=== PATIENT | female | born 1950 | race African-American/Black ===

== ENCOUNTER 2019-05-02 03:42 | Observation (INO) | payer MEDICARE, MEDICAID, SELFPAY ==
[2019-05-02] VITALS (19 sets, daily range): BP systolic 118–167; BP diastolic 58–80; PULSE 76–154; RESP 14–25; TEMP 35.9–36.6; O2SAT 93–100; BMI 40.7
--- NOTE | ~2019-05-02 | XR_ITS ---
XR chest 1V portable DATE: 05/02/2019 04:24 INDICATION: Midsternal chest pain. Shortness of breath. TECHNIQUE: Portable upright AP chest on 05/02/2019 at 0424 hours COMPARISON: 02/21/2019 AP and lateral chest FINDINGS: No pulmonary consolidation, pleural effusion or pneumothorax is detected. No hilar or media stinal enlargement. There is pulmonary vascular redistribution which might indicate mild pulmonary ve nous hypertension. Clinical correlation is advised. Heart size is likely within normal range considering magnification associated with AP projection. The re is some aortic unfolding. Osteoarthritic spurring of the right humeral head. Osteopenia. IMPRESSION: Pulmonary vascular redistribution, which may indicate mild pulmonary venous hypertension No pulmonary consolidation is evident Reviewed, dictated and finalized at location A. BOARD ERECTOR HELPER IMPRESSION: Pulmonary vascular redistribution, which may indicate mild pulmonar y venous hypertension No pulmonary consolidation is evident
--- NOTE | 2019-05-02 03:54 | ED.CHESTPAIN ---
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 Pt states her chest tightness is a 5/10, non radiating. Pt has a h/o CHF and COPD. Onset: during rest Related Data Allergies Allergy/AdvReac Type Severity Reaction Status Date / Time lisinopril Allergy Severe ANGIOEDEMA Verified 05/02/19 03:50 Review of Systems Review of Systems: All systems reviewed & are unremarkable except as noted in HPI and below Constitutional: Constitutional: Denies body ache(s), Denies chills, Denies excessive sweating, Denies fatigue, Denies fever(s), Denies headache(s), Denies lethargy, Denies malaise, Denies weakness and Denies weight loss Eyes: Eyes: Denies blurry vision, Denies change in vision and Denies loss of vision ENT: Denies dizziness, Denies ear discharge, Denies headache(s), Denies lip swelling, Denies epistaxis, Denies nasal congestion, Denies neck pain, Denies throat swelling and Denies tongue swelling Cardiovascular: Cardiovascular: Denies diaphoresis, Denies rapid heart rate, Denies edema, Denies irregular heart rhythm, Denies lightheadedness, Denies palpitations, Denies dyspnea and Denies dyspnea on exertion Respiratory: Respiratory: Denies chest congestion, Denies cough and Denies hemoptysis Gastrointestinal: Gastrointestinal: Denies abdominal pain, Denies melena, Denies hematochezia, Denies diarrhea, Denies nausea, Denies vomiting and Denies hematemesis Musculoskeletal: Musculoskeletal: Denies abnormal gait, Denies deformity, Denies joint swelling, Denies limited range of motion, Denies neck pain and Denies numbness Neurologic: Denies Abnormal speech present, Denies abnormal gait, Denies confusion, Denies dizziness, Denies headache(s), Denies focal weakness, Denies loss of vision, Denies numbness, Denies Other visual disturbances, Denies Sensory deficit (Neuro) and Denies weakness Psychiatric: Psychiatric: Denies confusion, Denies depression, Denies auditory hallucinations, Denies homicidal ideation and Denies suicidal ideation Endocrine: Endocrine: Denies cold intolerance, Denies excessive sweating, Denies fatigue, Denies heat intolerance and Denies palpitations Hematologic/Lymphatic: Hematologic/Lymphatic: Denies easy bleeding and Denies easy bruising Allergic/Immunologic: Allergic/Immunologic: Denies lip swelling, Denies throat swelling and Denies tongue swelling [facility] Past Medical History Medical History (Updated 05/02/19 @ 05:56 by Neymar Allan MD) Anxiety Arthritis Asthma Back pain Bronchitis Cataracts, bilateral CHF (congestive heart failure) COPD (chronic obstructive pulmonary disease) Depression GERD (gastroesophageal reflux disease) Hypertension Sleep apnea SVT (supraventricular tachycardia) Type 2 diabetes mellitus Surgical History Surgical History (Updated 02/21/19 @ 14:43 by Mitra Drew) H/O: hysterectomy History of cataract surgery bilateral Hx of cholecystectomy Social History Social History (Updated 02/21/19 @ 14:44 by Mitra Drew) Smoking packs per day: 1 Smoking cigarettes per day: 20.0 Years smoked: 30 Smoking pack-years: 30.00 Smoking status: Former smoker Exam Const: General: cooperative, comfortable, well developed, alert and awake; No confusion Nutritional Appearance: obese Orientation/consciousness: oriented to person, oriented to place, oriented to time, patient oriented x3 and No confusion Limitations: no limitations Other: moderate distress HENMT: Head: normal to inspection, normocephalic and atraumatic Ears: hearing grossly normal bilaterally, TM normal on the right and TM normal on the left General nose exam: Normal external nose present, Normal nares present and No nasal discharge present Face and sinus: normal facial exam Mouth: Yes Normal oral a
[2019-05-02] MEDS: IPRATROPIUM BR 0.02% INH SOLN 0.5 MG/2.5 ML VIAL INHALATION (03:58)
--- NOTE | 2019-05-02 04:12 | PC.NURSE ---
Per EDP Sanjana, no dose of Aspirin needed. 324mg given by EMS prior to arrival to ED.
[2019-05-02 04:17] LABS: Basophils Percent Auto 0.5 % (0.2-1.2); Eosinophils Absolute Auto 0.2 K/mm3 (0-0.3); Eosinophils Percent Auto 2.2 % (0-4.4); Hematocrit 36.2 % (37.0-47.0); Hemoglobin 10.2 g/dL (12.0-15.0); Immature Granulocyte Absolute 0.02 K/mm3 (0.00-0.031); Immature Granulocyte Percent A 0.3 % (0-0.5); Lymphocytes Absolute Auto 1.92 K/mm3 (0.9-3.2); Lymphocytes Percent Auto 25.9 % (18.3-44.2); Mean Corpuscular HGB Conc 28.2 g/dl (32-36); Mean Corpuscular Hemoglobin 22.2 pg (26-34); Mean Corpuscular Volume 78.9 fl (80-100); Mean Platelet Volume 12.4 fl (7.4-10.4); Monocytes Absolute Auto 0.6 K/mm3 (0.1-0.6); Monocytes Percent Auto 8.2 % (2.6-8.5); Neutrophils Absolute Auto 4.7 K/mm3 (1.3-6.7); Neutrophils Percent Auto 62.9 % (45.5-73.1); Platelet Count Result 180 k/mm3 (150-375); Red Blood Count 4.59 M/mm3 (4.2-5.4); Red Cell Distribution Width 16.4 % (11.5-14.5); White Blood Count 7.4 K/mm3 (4.5-10.0)
[2019-05-02 04:29] LABS: INR 1.1; Prothrombin Time 13.4 Seconds (11.1-14.7)
[2019-05-02 04:30] LABS: Partial Thromboplastin Time 29.7 SECONDS (22.3-36.8)
[2019-05-02 04:31] LABS: Blood Urea Nitrogen 18 mg/dL (7-17); Calcium 9.1 mg/dL (8.4-10.2); Carbon Dioxide 36 mmol/L (22-30); Chloride 95 mmol/L (98-107); Estimated CRCL calculation 64 ml/min; Estimated Glomerular Filt Rate > 60; Glucose 196 mg/dL (65-105); Potassium 3.9 mmol/L (3.4-5.0); Sodium 142 mmol/L (137-145)
[2019-05-02 04:32] LABS: D Dimer 0.33 ug/mL (<0.48)
[2019-05-02 04:38] LABS: Microcytosis 1+ (NORMAL); NT Pro B Type Natriuretic Pept 35 PG/ML (5-100); Platelet Estimate Adequate (Adequate)
[2019-05-02 04:43] LABS: Troponin I < 0.012 ng/mL (0.000-0.034)
--- NOTE | 2019-05-02 04:43 | ECG_ITS ---
Measurements Intervals [place] Rate: 153 P: [place]: 0 QRS: -9 QRSD: 169 T: 36 QT: 289 QTc: 461 Interpretive Statements SUPRAVENTRICULAR TACHYCARDIA INTRAVENTRICULAR CONDUCTION DELAY BORDERLINE R WAVE PROGRESSION, ANTERIOR LEADS ST-T WAVE ABNORMALITY IN INFERIOR LEADS- CONSIDER ISCHEMIA ABNORMAL ECG Electronically Signed On 05-02-2019 7:10:05 PELOTA MAKER by Michael Segal D.O.
[2019-05-02 09:01] LABS: Troponin I < 0.012 ng/mL (0.000-0.034)
[2019-05-02 11:13] LABS: Troponin I < 0.012 ng/mL (0.000-0.034)
[2019-05-02] MEDS: PANTOPRAZOLE 40 MG TABLET PO (11:57)
[2019-05-02] MEDS: MONTELUKAST SODIUM 10 MG TABLET PO (11:58)
[2019-05-02] MEDS: FUROSEMIDE 40 MG TABLET PO ×2 (11:58→18:06)
[2019-05-02] MEDS: SERTRALINE HCL 50 MG TABLET PO (11:58)
[2019-05-02] MEDS: FLUOXETINE HCL 20 MG CAP PO (11:58)
[2019-05-02] MEDS: metFORMIN HCL XR 500 MG TAB.SR.24H 1000 MG PO (12:00)
[2019-05-02] MEDS: PREGABALIN 50 MG CAPSULE 150 MG PO ×2 (12:01→18:06)
[2019-05-02 12:11] LABS: Glucose Point of Care 174 (65-105)
--- NOTE | 2019-05-02 14:15 | PC.NURSE ---
Report called to [facility] on 2 [facility], all questions answered. Patient transported to room 242-[address] [place] [address] via bed by Rc NAGY. All patient belongings sent with patient.
--- NOTE | 2019-05-02 17:09 | PM.IMHP ---
H&P: HPI History of Present Illness Chief complaint: CP/SVT Narrative: Abbie Painter is a 68 year old female that presented to ED today with chest tightness and shortness of breath. Patient has a past medical history of anxiety, asthma, back pain, bronchitis, congestive heart failure, COPD, depression, GERD, hypertension, sleep apnea, type 2 diabetes and SVT. According to patient she was at home and she started to experience chest pains ,shortness of breath and a racing heart rate. Patient noted that she has had several episodes like this in the past. She would go to the emergency room in they would give her medication to slow down her heart rate or she will bare down as if she was having a bowel movement and her heart would slowed down. She noted the pain was unbearable this time she could not bear down to slow down her heart rate. 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 She did note that she told her primary care physician about her situation but it was years ago. I will consult cardiology , so that she can establish a fitness sales consultant and have regular visits. Her vital signs on admissions are 83, 21, 94% 2 L nasal cannula, 129/62. She does have a history of COPD and uses 2 L nasal cannula daily. Well she was in the ER she did receive some Cardizem, EKG indicated SVT her troponins were negative. Patient will continue telemetry, continue her daily dose of Cardizem, and as I noted earlier cardiology will be consulted. . Patient denies SOB, CP, palpitation, extremity numbness, lightheadness, dizziness, constipation, diarrhea, or chills or fever. Patient agree that they are ready for discharge and discharge plan. Review of Systems Constitutional: Constitutional: Denies chills, Denies fatigue and Reports stops breathing during sleep Cardiovascular: Cardiovascular: Denies chest pain at rest, Denies chest pain with activity, Denies palpitations, Denies dyspnea and Denies dyspnea on exertion Respiratory: Respiratory: Denies pain with cough and Denies dyspnea Gastrointestinal: Gastrointestinal: Reports as per HPI, Denies constipation, Denies nausea and Denies vomiting Genitourinary: Genitourinary: Reports no additional female genitourinary complaints Musculoskeletal: Musculoskeletal: Reports other (Chronic lower back pain) Neurologic: Reports system reviewed and no additional complaints, except as documented, Denies vertigo, Denies dizziness, Denies syncope and Denies headache(s) [facility] Past Medical History Medical History (Updated 05/02/19 @ 17:18 by KALYANI Tariq) Anxiety Arthritis Asthma Back pain Bronchitis Cataracts, bilateral CHF (congestive heart failure) COPD (chronic obstructive pulmonary disease) Depression GERD (gastroesophageal reflux disease) Hypertension Sleep apnea SVT (supraventricular tachycardia) Type 2 diabetes mellitus Surgical History Surgical History (Updated 02/21/19 @ 14:43 by Mitra Drew) H/O: hysterectomy History of cataract surgery bilateral Hx of cholecystectomy Family History Family History (Updated 05/02/19 @ 12:49 by Keerthi Jacobo RN) Father Acute myocardial infarction Diabetes mellitus Mother Cerebrovascular accident Diabetes mellitus Sibling Diabetes mellitus Sibling Diabetes mellitus Sibling Diabetes mellitus Sibling Diabetes mellitus Sibling Diabetes mellitus Social History Social History (Updated 02/21/19 @ 14:44 by Mitra Drew) Smoking packs per day: 1 Smoking cigarettes per day: 20.0 Years smoked: 30 Smoking pack-years: 30.00 Smoking status: Former smoker Alcohol intake: current Drinks per week: 1 Substance use: never Substance use type: does not use Gender identity (if verbalized by the patient): Female Spiritual care concerns: No Meds Home Medications and Allergies Home Medications Medication Instructions Recorded Confirmed Type atorvastatin 40 mg PO DAILY 05/02/19 05/02/19 History bl
[2019-05-02 18:18] LABS: Hematocrit 35.1 % (37.0-47.0); Hemoglobin 9.6 g/dL (12.0-15.0); Mean Corpuscular HGB Conc 27.4 g/dl (32-36); Mean Corpuscular Hemoglobin 21.7 pg (26-34); Mean Corpuscular Volume 79.2 fl (80-100); Mean Platelet Volume 12.4 fl (7.4-10.4); Platelet Count Result 173 k/mm3 (150-375); Red Blood Count 4.43 M/mm3 (4.2-5.4); Red Cell Distribution Width 16.5 % (11.5-14.5)
[2019-05-02 18:39] LABS: Glucose Point of Care 107 (65-105)
[2019-05-02] MEDS: ATORVASTATIN 40 MG TABLET PO (20:28)
[2019-05-02] MEDS: INSULIN GLARGINE (*BKC) 100 UNITS/ML 55 UNITS SUB-Q (20:29)
[2019-05-02 21:42] LABS: Glucose Point of Care 227 (65-105)
[2019-05-03] VITALS (10 sets, daily range): BP systolic 141–146; BP diastolic 57–66; PULSE 66–90; RESP 17–18; TEMP 36.1–37; O2SAT 94–98
--- NOTE | 2019-05-03 | ECHO_ITS ---
Patient Info Name: Abbie Painter Age: 68 years : 1950 Gender: Female Ht: 67 in Wt: 260 lbs BSA: 2.42 m2 HR: 73 bpm BP: 146 / 65 mmHg Technical Quality: Good Exam Date: 05/03/2019 10:47 AM Exam Location: [facility] Patient Status: Outpatient Admit Date: 05/02/2019 Staff Ordering Physician: Mike Castillo MD Portrait Painter: Barbara Hudson RDCS Attending Provider: Dayana Santiago DO Exam Type: CA echo doppler color flow Study Info Complete two-dimensional, color flow and Doppler transthoracic echocardiogram is performed. Summary 1. Left ventricular systolic function is normal, estimated at 65-70%. 2. There is no increased left ventricular wall thickness. 3. There is trace mitral valve regurgitation. Left Ventricle Left ventricular chamber dimension is normal. Left ventricular systolic function is normal, estimated at 65-70%. There is no increased left ventricular wall thickness. Left ventricular septal wall motion is normal. The left ventricular diastolic function is normal. Right Ventricle Right ventricular chamber dimension is normal. Right ventricular systolic function is normal. Left Atria Left atrial chamber dimension is normal. Right Atria Right atrial chamber dimension is normal. Aortic Valve The aortic valve is trileaflet. There is no aortic valve sclerosis. There is no aortic valve stenosis. There is no aortic valve regurgitation. Pulmonic Valve The pulmonic valve is normal. There is no pulmonic valve stenosis. There is no pulmonic regurgitation. Mitral Valve The mitral valve has normal leaflets. There is no mitral valve stenosis. There is trace mitral valve regurgitation. Tricuspid Valve The tricuspid valve leaflets are normal. There is no significant tricuspid valve stenosis. There is no tricuspid valve regurgitation. Pericardium/Pleural The pericardium appears normal. There is no pericardial effusion. Aorta The aortic root size at the sinus of Valsalva is normal. The prox ascending aorta size is normal. Left Ventricular Outflow Tract Name Value Normal LVOT 2D LVOT Diameter 2.1 cm LVOT Doppler LVOT Peak Gradient 8 mmHg LVOT Mean Gradient 4 mmHg LVOT VTI 35 cm LVOT VTI/AV VTI Ratio 1.0 LVOT Stroke Volume 120 ml LVOT CO 20.0 l/min LVOT CI 8.3 l/min/m2 Pulmonic Valve Name Value Normal PV Doppler PV Peak Gradient 2 mmHg Mitral Valve Name Value Normal MV Doppler
[2019-05-03 05:54] LABS: Hematocrit 34.8 % (37.0-47.0); Hemoglobin 9.6 g/dL (12.0-15.0); Mean Corpuscular HGB Conc 27.6 g/dl (32-36); Mean Corpuscular Volume 79.8 fl (80-100); Mean Platelet Volume 11.6 fl (7.4-10.4); Platelet Count Result 159 k/mm3 (150-375); Red Blood Count 4.36 M/mm3 (4.2-5.4); Red Cell Distribution Width 16.2 % (11.5-14.5)
[2019-05-03 06:12] LABS: Alanine Aminotransferase 47 U/L (4-35); Albumin Level 3.9 g/dL (3.5-5.1); Alkaline Phosphatase 81 U/L (38-126); Aspartate Amino Transferase 39 U/L (14-36); Bilirubin,Total 0.2 mg/dL (0.2-1.3); Blood Urea Nitrogen 17 mg/dL (7-17); Calcium 9.2 mg/dL (8.4-10.2); Carbon Dioxide > 40 mmol/L (22-30); Chloride 97 mmol/L (98-107); Estimated CRCL calculation 79 ml/min; Estimated Glomerular Filt Rate > 60; Glucose 153 mg/dL (65-105); Lipase 81 U/L (23-300); Potassium 4.1 mmol/L (3.4-5.0); Sodium 142 mmol/L (137-145)
[2019-05-03 08:33] LABS: Glucose Point of Care 124 (65-105)
[2019-05-03] MEDS: metFORMIN HCL XR 500 MG TAB.SR.24H 1000 MG PO (08:35)
[2019-05-03] MEDS: FUROSEMIDE 40 MG TABLET PO (08:36)
[2019-05-03] MEDS: ASPIRIN 325 MG ENTERIC TABLET PO (08:36)
[2019-05-03] MEDS: FLUOXETINE HCL 20 MG CAP PO (08:36)
[2019-05-03] MEDS: PREGABALIN 50 MG CAPSULE 150 MG PO (08:37)
[2019-05-03] MEDS: METOPROLOL TARTRATE 12.5 MG TABLET PO (08:37)
[2019-05-03] MEDS: MONTELUKAST SODIUM 10 MG TABLET PO (08:37)
[2019-05-03] MEDS: PANTOPRAZOLE 40 MG TABLET PO (08:37)
[2019-05-03] MEDS: SERTRALINE HCL 50 MG TABLET PO (08:38)
[2019-05-03] MEDS: ACETAMINOPHEN 500 MG TABLET 1000 MG PO (08:38)
--- NOTE | 2019-05-03 10:22 | PM.IMPN ---
Progress Note: A&P Assessment and Plan (1) SVT (supraventricular tachycardia): Code(s): I47.1 - Supraventricular tachycardia Status: Acute Assessment and Plan: Continue Cardizem 180 mg daily -cardiology consulted -Continue telemetry -EKG indicates SVT -heart rate currently 100 -vital signs as ordered (2) CHF (congestive heart failure): Qualifiers: Heart failure chronicity: unspecified Heart failure type: unspecified Qualified Code(s): I50.9 - Heart failure, unspecified Code(s): I50.9 - Heart failure, unspecified Status: Acute Assessment and Plan: compensated Cont home lasix (3) Diabetes mellitus: Code(s): E11.9 - Type 2 diabetes mellitus without complications Status: Acute Assessment and Plan: cont lantus metformin SSI and hypoglycemia protocol -will adjust insulin -continue a.c. HS Accu-Cheks -Scott continue diabetic (4) COPD (chronic obstructive pulmonary disease): Code(s): J44.9 - Chronic obstructive pulmonary disease, unspecified Status: Acute Assessment and Plan: Use of 2 L nasal cannula -continue nebulizers and inhalers (5) Back pain: Code(s): M54.9 - Dorsalgia, unspecified Status: Acute Assessment and Plan: started pian medication and lidoderm Subjective Date/time seen: 05/03/19 10:22 refer to discharge note Review of Systems Constitutional: Constitutional: Denies chills, Denies fatigue, Denies headache(s) and Reports stops breathing during sleep ENT: Denies vertigo, Denies dizziness and Denies headache(s) Cardiovascular: Cardiovascular: Denies chest pain at rest, Denies chest pain with activity, Denies syncope, Denies palpitations, Denies dyspnea and Denies dyspnea on exertion Respiratory: Respiratory: Denies pain with cough, Denies dyspnea and Denies dyspnea on exertion Gastrointestinal: Gastrointestinal: Reports as per HPI, Denies constipation, Denies nausea and Denies vomiting Genitourinary: Genitourinary: Reports no additional female genitourinary complaints Musculoskeletal: Musculoskeletal: Reports other (Chronic lower back pain) Neurologic: Reports system reviewed and no additional complaints, except as documented, Denies vertigo, Denies dizziness, Denies syncope and Denies headache(s) Endocrine: Endocrine: Denies fatigue and Denies palpitations Exam Const: General: cooperative and comfortable Orientation/consciousness: oriented to person and patient oriented x3 Eyes: Pupils: Equal, round and reactive pupils present Resp: Auscultation: diminished lung sounds Cardio: Jugular venous distension: no JVD Rate: regular rate Peripheral pulses: Peripheral pulses 2+ throughout Neuro: General: oriented to person and patient oriented x3 Cranial nerves: Yes Equal, round and reactive pupils present Speech: normal speech Objective Data Vital Signs Vital Signs: Vital Signs - 24 hr 05/02/19 12:00 05/02/19 14:45 05/02/19 16:00 Temperature 36.3 C L Pulse Rate 82 76 76 Respiratory Rate 14 16 Blood Pressure 118/68 135/61 Pulse Oximetry 97 96 05/02/19 18:00 05/02/19 20:00 05/02/19 22:00 Temperature 36.6 C 35.9 C L Pulse Rate 82 85 89 Respiratory Rate 16 16 Blood Pressure 141/58 H 143/60 H Pulse Oximetry 97 95 05/02/19 22:52 05/02/19 22:53 05/03/19 00:00 Temperature Pulse Rate 83 90 Respiratory Rate 18 Blood Pressure Pulse Oximetry 95 95 05/03/19 02:00 05/03/19 02:12 05/03/19 04:00 Temperature 36.1 C L Pulse Rate 82 78 78 Respiratory Rate 18 17 Blood Pressure 146/65 H Pulse Oximetry 94 96 05/03/19 06:00 05/03/19 07:56 05/03/19 08:37 Temperature 36.2 C L Pulse Rate 82 80 Respiratory Rate 18 Blood Pressure 141/66 H Pulse Oximetry 96 95 Intake/Output Intake/Output: Intake & Output 04/30/19 05/01/19 05/02/19 05/03/19 23:59 23:59 23:59 23:59 Intake Total 840 510 Output Total 700 Balance 840 -190
--- NOTE | 2019-05-03 11:51 | PM.CNCAR ---
Assessment and Plan Assessment and plan (1) COPD (chronic obstructive pulmonary disease): Code(s): J44.9 - Chronic obstructive pulmonary disease, unspecified Status: Acute (2) Diabetes mellitus: Code(s): E11.9 - Type 2 diabetes mellitus without complications Status: Acute (3) Chest pain: Qualifiers: Chest pain type: unspecified Qualified Code(s): R07.9 - Chest pain, unspecified Code(s): R07.9 - Chest pain, unspecified Status: Acute Assessment and Plan: She has nonspecific complaint of chest pain, seems to be atypical, however she has significant risk factors for coronary disease she is to have further evaluation possibly with a stress test which could be done as an outpatient as it would not be able to do this weekend. Echocardiogram was done unremarkable, once her symptoms of palpitation improved she could be discharged home to have a follow-up outpatient to have an outpatient stress test (4) SVT (supraventricular tachycardia): Code(s): I47.1 - Supraventricular tachycardia Status: Acute Assessment and Plan: She has symptomatic palpitation seems to be showing atrial flutter, better now she is was given metoprolol continue with her home Cardizem with atrial flutter she needs to be on anticoagulation (5) Atrial flutter: Code(s): I48.92 - Unspecified atrial flutter Status: Acute Assessment and Plan: Her EKG actually showed atrial flutter with 2-1 conduction, for that she needs to be on metoprolol 25 daily as well as continue with her Cardizem 180 daily and would add that Xarelto for anticoagulation. Once she is on the anticoagulation she does not have take aspirin Additional Plan Thank you for allowing me to participate in this patient's care, I will be following up with you. Please do not hesitate to call me for any other inquiry History of Present Illness History of Present Illness Consult date/time: 05/03/19 11:51 Chief complaint is palpitation and chest heaviness. 68 years old lady with history of hypertension, diabetes mellitus, came to the hospital because of episode of heaviness the chest and palpitations started about 10 minutes prior to her calling 911 started having sudden onset palpitation patient with you slight dizziness and heaviness in the chest. Upon arrival to the hospital noted to have atrial flutter with 2-1 conduction on her EKG. She was given IV metoprolol and slowed her rate down and she converted to sinus rhythm. Cardiac is has a ventricular better. She has her shortness breath leg swelling she is not very active, no known history of coronary disease no history of previous myocardial infarction. Currently she feels okay wants to go home. Cardiac enzymes are negative. Reason For Visit: CP/SVT Review of Systems Constitutional: Constitutional: Reports difficulty sleeping, Reports fatigue and Reports lethargy Cardiovascular: Cardiovascular: Reports as per HPI Respiratory: Respiratory: Reports dyspnea PMFSH Past Medical History Medical History Anxiety Arthritis Asthma Back pain Bronchitis Cataracts, bilateral CHF (congestive heart failure) COPD (chronic obstructive pulmonary disease) Depression GERD (gastroesophageal reflux disease) Hypertension Sleep apnea SVT (supraventricular tachycardia) Type 2 diabetes mellitus Surgical History Surgical History H/O: hysterectomy History of cataract surgery bilateral Hx of cholecystectomy Family History Family History Father Acute myocardial infarction Diabetes mellitus Mother Cerebrovascular accident Diabetes mellitus Sibling Diabetes mellitus Sibling Diabetes mellitus Sibling Diabetes mellitus Sibling Diabetes mellitus Sibling Diabetes mellitus Social History Social History (Reviewed 0
[2019-05-03 13:28] LABS: Glucose Point of Care 140 (65-105)
--- NOTE | 2019-05-03 14:16 | PM.DS ---
DS: Diagnosis Admitting Diagnosis Admitting Diagnosis: Supraventricular tachycardia Discharge Diagnosis (1) SVT (supraventricular tachycardia): Code(s): I47.1 - Supraventricular tachycardia Status: Acute Assessment and Plan: dx with afib not svt Continue Cardizem 180 mg daily -cardiology consulted -Continue telemetry -heart rate currently 100 (2) CHF (congestive heart failure): Qualifiers: Heart failure chronicity: unspecified Heart failure type: unspecified Qualified Code(s): I50.9 - Heart failure, unspecified Code(s): I50.9 - Heart failure, unspecified Status: Acute Assessment and Plan: compensated Cont home lasix (3) Diabetes mellitus: Code(s): E11.9 - Type 2 diabetes mellitus without complications Status: Acute Assessment and Plan: cont lantus metformin SSI and hypoglycemia protocol -will adjust insulin -continue a.c. HS Accu-Cheks -Scott continue diabetic (4) COPD (chronic obstructive pulmonary disease): Code(s): J44.9 - Chronic obstructive pulmonary disease, unspecified Status: Acute Assessment and Plan: Use of 2 L nasal cannula -continue nebulizers and inhalers (5) Back pain: Code(s): M54.9 - Dorsalgia, unspecified Status: Acute Assessment and Plan: started pian medication and lidoderm (6) Atrial flutter: Code(s): I48.92 - Unspecified atrial flutter Status: Acute Assessment and Plan: dx with afib not svt Continue Cardizem 180 mg daily -cardiology consulted -Continue telemetry -heart rate currently 100 -with discharge home on metoprolol Cardizem and eliquis DS: Summary Hospital Course Hospital Course: H&P from : Abbie Painter is a 68 year old female that presented to ED today with chest tightness and shortness of breath. Patient has a past medical history of anxiety, asthma, back pain, bronchitis, congestive heart failure, COPD, depression, GERD, hypertension, sleep apnea, type 2 diabetes and SVT. According to patient she was at home and she started to experience chest pains ,shortness of breath and a racing heart rate. Patient noted that she has had several episodes like this in the past. She would go to the emergency room in they would give her medication to slow down her heart rate or she will bare down as if she was having a bowel movement and her heart would slowed down. She noted the pain was unbearable this time she could not bear down to slow down her heart rate. 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 She did note that she told her primary care physician about her situation but it was years ago. I will consult cardiology , so that she can establish a bulking machine operator and have regular visits. Her vital signs on admissions are 83, 21, 94% 2 L nasal cannula, 129/62. She does have a history of COPD and uses 2 L nasal cannula daily. Well she was in the ER she did receive some Cardizem, EKG indicated SVT her troponins were negative. Patient will continue telemetry, continue her daily dose of Cardizem, and as I noted earlier cardiology will be consulted. . Patient denies SOB, CP, palpitation, extremity numbness, lightheadness, dizziness, constipation, diarrhea, or chills or fever. Patient agree that they are ready for discharge and discharge plan. Patient will discharge today 05/03/19 Dx afib- cardiology was consulted this visit and she was dx with afib . she will discharge home with metoprolol and Eliquis in follow-up with bulking machine operator Patient able to tolerate all meals , slept well and ambulate at baseline. Patient denies SOB, CP, palpitation, extremity numbness, lightheadness, dizziness, constipation, diarrhea, or chills or fever. Patient agree that they are ready for discharge and discharge plan. Time Spent with Patient Time attestation: Total time spent providing and/or coordinating discharge services:60 Exam Const: General: cooperative and comfortable Tanner
== END 2019-05-03 15:45 | disposition home or self-care (01) ==
LOC: ANHED 05:56 → ANHICU 06:15 → ANHCPC 07:27 → ANH2MED 14:55
PROVIDERS: Nurse Practitioner; Admitting Provider Internal Medicine; Emergency Provider Emergency Medicine; Visit Provider Internal Medicine
DX: I48.91 Unspecified atrial fibrillation (principal); I48.92 Unspecified atrial flutter; I11.0 Hypertensive heart disease with heart failure; I50.9 Heart failure, unspecified; E11.9 Type 2 diabetes mellitus without complications; J44.9 Chronic obstructive pulmonary disease, unspecified; K21.9 Gastro-esophageal reflux disease without esophagitis; M54.9 Dorsalgia, unspecified; Z87.891 Personal history of nicotine dependence; Z79.4 Long term (current) use of insulin; Z79.84 Long term (current) use of oral hypoglycemic drugs; Z79.899 Other long term (current) drug therapy
CPT/HCPCS: 36415; 71045; 80048; 80076; 83690; 83880; 84484; 85025; 85027; 85380; 85610; 85730; 93005; 93306; 94640; 96374; 99285; A9270; G0378; J1815

== ENCOUNTER 2020-06-14 08:14 | Emergency (ER) | payer MEDICARE, MEDICAID, SELFPAY ==
[2020-06-14] VITALS (8 sets, daily range): BP systolic 115–154; BP diastolic 57–84; PULSE 85–145; RESP 17–23; TEMP 36.5; O2SAT 90–98
--- NOTE | ~2020-06-14 | XR_ITS ---
EXAMINATION: XR chest 1V portable DATE: 06/14/2020 08:34 INDICATION: Chest pain. Shortness of breath. TECHNIQUE: A single frontal view of the chest was obtained. COMPARISON: Chest single view 05/02/2019, CT abdomen and pelvis 05/26/2016 FINDINGS: There is mild atelectasis in the lower lung zones. No pleural effusion or pneumothorax. Car diomegaly is noted. IMPRESSION: 1. Mild atelectasis in the lower lung zones. 2. Cardiomegaly. Reviewed, dictated and finalized at location A.
--- NOTE | 2020-06-14 08:12 | ECG_ITS ---
Measurements Intervals [place] Rate: 146 P: [place]: 0 QRS: -12 QRSD: 185 T: 0 QT: 295 QTc: 460 Interpretive Statements SUPRAVENTRICULAR TACHYCARDIA INTRAVENTRICULAR CONDUCTION DELAY BORDERLINE R WAVE PROGRESSION, ANTERIOR LEADS ST-T WAVE ABNORMALITY IN INFERIOR LEADS- CONSIDER ISCHEMIA ABNORMAL ECG Electronically Signed On 06-14-2020 13:11:56 CDT by Michael Segal D.O.
[2020-06-14 09:21] LABS: Basophils Absolute Auto 0.1 K/mm3 (0.0-0.1); Eosinophils Absolute Auto 0.2 K/mm3 (0-0.3); Hematocrit 38.3 % (37.0-47.0); Hemoglobin 10.9 g/dL (12.0-15.0); Immature Granulocyte Absolute 0.02 K/mm3 (0.00-0.031); Immature Granulocyte Percent A 0.3 % (0-0.5); Immature Platelet Fraction Pct 6.3 % (0.9-11.2); Lymphocytes Absolute Auto 1.41 K/mm3 (0.9-3.2); Lymphocytes Percent Auto 23.8 % (18.3-44.2); Mean Corpuscular HGB Conc 28.5 g/dl (32-36); Mean Corpuscular Volume 77.2 fl (80-100); Mean Platelet Volume 11.5 fl (7.4-10.4); Monocytes Absolute Auto 0.4 K/mm3 (0.1-0.6); Monocytes Percent Auto 6.1 % (2.6-8.5); Neutrophils Absolute Auto 3.9 K/mm3 (1.3-6.7); Neutrophils Percent Auto 65.8 % (45.5-73.1); Platelet Count Result 185 k/mm3 (150-375); Red Blood Count 4.96 M/mm3 (4.2-5.4); Red Cell Distribution Width 16.7 % (11.5-14.5); White Blood Count 5.9 K/mm3 (4.5-10.0)
[2020-06-14 09:29] LABS: INR 1.1; Prothrombin Time 14.7 Seconds (11.1-14.7)
[2020-06-14 09:30] LABS: Partial Thromboplastin Time 41.1 SECONDS (22.3-36.8)
[2020-06-14 09:31] LABS: Anion Gap 4 mmol/L (8-16); Blood Urea Nitrogen 22 mg/dL (7-17); Calcium 9.7 mg/dL (8.4-10.2); Carbon Dioxide 39 mmol/L (22-30); Chloride 98 mmol/L (98-107); Estimated CRCL calculation 62 ml/min; Estimated Glomerular Filt Rate > 60; Glucose 217 mg/dL (65-105); Potassium 4.3 mmol/L (3.4-5.0); Sodium 141 mmol/L (137-145)
[2020-06-14 09:43] LABS: Troponin I < 0.012 ng/mL (0.000-0.034)
[2020-06-14 09:44] LABS: Troponin I < 0.012 ng/mL (0.000-0.034)
--- NOTE | 2020-06-14 10:38 | ED.CHESTPAIN ---
HPI - Chest Pain General Chief Complaint: Chest Pain Stated Complaint: cp/sob Time Seen by Provider: 06/14/20 08:16 History of Present Illness HPI narrative: Patient is a 69-year-old female who presents ER with chest pain and racing the heart. She awoke this morning with the symptoms. Pain is central nonradiating. She cannot describe the quality of this pain. She cannot describe any aggravating or alleviating factors. Nitroglycerin did not aid her in route with EMS. Patient was hospitalized 1 year ago with atrial flutter and started on anticoagulation. Had similar presentation at that time. Her bag grader is Dr. Tracy at [place]. Related Data Home Medications Medication Instructions Recorded Confirmed Jardiance 10 mg PO DAILY 05/02/19 05/02/19 Lantus Solostar U-100 Insulin 55 unit SUBCUT DAILY 05/02/19 05/02/19 atorvastatin 40 mg PO DAILY 05/02/19 05/02/19 diltiazem HCl [DILT-XR] 180 mg PO DAILY 05/02/19 05/02/19 fluoxetine 20 mg PO DAILY 05/02/19 05/02/19 furosemide 40 mg PO BID 05/02/19 05/02/19 metformin 1,000 mg PO DAILY 05/02/19 05/02/19 montelukast 10 mg PO DAILY 05/02/19 05/02/19 pregabalin 150 mg PO BID 05/02/19 05/02/19 sertraline 50 mg PO DAILY 05/02/19 05/02/19 Allergies Allergy/AdvReac Type Severity Reaction Status Date / Time lisinopril Allergy Severe ANGIOEDEMA Verified 06/14/20 08:28 Review of Systems Review of Systems: All systems reviewed & are unremarkable except as noted in HPI and below Constitutional: Constitutional: Denies chills, Denies fever(s) and Denies weakness ENT: Denies nasal congestion and Denies sore throat Cardiovascular: Cardiovascular: Reports chest pain, Denies rapid heart rate and Denies radiating jaw, neck or arm pain Respiratory: Respiratory: Denies cough, Reports dyspnea and Denies wheezing Gastrointestinal: Gastrointestinal: Denies abdominal pain, Denies nausea and Denies vomiting [facility] Past Medical History Medical History (Updated 06/14/20 @ 13:33 by Remberto Mosley MD) Anxiety Arthritis Asthma Back pain Bronchitis Cataracts, bilateral CHF (congestive heart failure) COPD (chronic obstructive pulmonary disease) Depression GERD (gastroesophageal reflux disease) Hypertension Sleep apnea SVT (supraventricular tachycardia) Type 2 diabetes mellitus Surgical History Surgical History H/O: hysterectomy History of cataract surgery bilateral Hx of cholecystectomy Family History Family History Father Acute myocardial infarction Diabetes mellitus Mother Cerebrovascular accident Diabetes mellitus Sibling Diabetes mellitus Sibling Diabetes mellitus Sibling Diabetes mellitus Sibling Diabetes mellitus Sibling Diabetes mellitus Social History Social History Smoking packs per day: 1 Smoking cigarettes per day: 20.0 Years smoked: 30 Smoking pack-years: 30.00 Smoking status: Former smoker Alcohol intake: current Drinks per week: 1 Substance use: never Substance use type: does not use Gender identity (if verbalized by the patient): Female Spiritual care concerns: No Exam Narrative: Exam Narrative: GENERAL: Well-appearing, well-nourished, and in no acute distress. HEAD: Normocephalic, atraumatic. ENT: Mucous membranes moist. CHEST: Clear to auscultation. No respiratory distress. HEART: Tachycardic and regular normal peripheral pulses. ABDOMEN: Soft, nontender, nondistended. EXTREMITIES: Normal range of motion. No edema. SKIN: Warm, dry, no rash. NEURO: Alert and oriented x3. PSYCH: Normal mood and affect. Course Course Emergency Course: Patient converted out of her arrhythmia without any medication here. We did give her her home diltiazem. Discussed case with Nallely the nurse practitioner at the patient's bag grader office. No modifications to
--- NOTE | 2020-06-14 10:57 | PC.NURSE ---
Dietary tray ordered for pt at this time per request and [facility] EDP for heart healthy diet.
[2020-06-14 11:58] LABS: NT Pro B Type Natriuretic Pept 80 PG/ML (5-100)
[2020-06-14 12:01] LABS: Troponin I < 0.012 ng/mL (0.000-0.034)
== END 2020-06-14 14:14 | disposition home or self-care (01) ==
PROVIDERS: Emergency Provider Emergency Medicine; PCP Family Medicine
DX: R07.9 Chest pain, unspecified (principal); I47.1 Supraventricular tachycardia; I50.9 Heart failure, unspecified; J44.9 Chronic obstructive pulmonary disease, unspecified; E11.9 Type 2 diabetes mellitus without complications; K21.9 Gastro-esophageal reflux disease without esophagitis; G47.30 Sleep apnea, unspecified; F32.9 Major depressive disorder, single episode, unspecified; F41.9 Anxiety disorder, unspecified; Z79.4 Long term (current) use of insulin; Z98.42 Cataract extraction status, left eye; Z98.41 Cataract extraction status, right eye; Z87.891 Personal history of nicotine dependence; I51.7 Cardiomegaly; I45.9 Conduction disorder, unspecified; R94.31 Abnormal electrocardiogram [ECG] [EKG]; R91.8 Other nonspecific abnormal finding of lung field
CPT/HCPCS: 36415; 71045; 80048; 83880; 84484; 85025; 85055; 85610; 85730; 93005; 99284; A9270

== ENCOUNTER 2020-12-12 14:41 | Emergency (ER) | payer MEDICARE, MEDICAID, SELFPAY ==
--- NOTE | ~2020-12-12 | XR_ITS ---
EXAMINATION: XR knee RT min 4V DATE: 12/12/2020 15:23 INDICATION: Right knee pain TECHNIQUE: Four views of the right knee were obtained. COMPARISON: None. FINDINGS: Alignment is normal. No fracture or osteochondral lesion. There is tricompartmental osteoar thritis, moderate in the medial compartment. No joint effusion/synovitis. There is moderate soft [place] swelling of the medial leg. IMPRESSION: 1. No acute osseous abnormality. Reviewed, dictated and finalized at location A.
[2020-12-12 14:58] VITALS: BP 132/54; PULSE 70; RESP 14; TEMP 36.8; O2SAT 99
--- NOTE | 2020-12-12 18:13 | PC.NURSE ---
pt not in waiting room when called.
== END 2020-12-13 04:29 | disposition left against medical advice (07) ==
PROVIDERS: Emergency Provider Emergency Medicine
DX: S80.01XA Contusion of right knee, initial encounter (principal)
CPT/HCPCS: 73564; 99199

== ENCOUNTER 2021-06-21 14:18 | Emergency (ER) | payer MEDICARE, MEDICAID, SELFPAY ==
[2021-06-21] VITALS (13 sets, daily range): BP systolic 133–165; BP diastolic 51–88; PULSE 67–84; RESP 14–22; TEMP 36.7; O2SAT 93–99
--- NOTE | ~2021-06-21 | US_ITS ---
EXAMINATION: US venous doppler [facility] DATE: 06/21/2021 16:10 INDICATION: Edema and erythema. TECHNIQUE: Grayscale images without and with compression and Doppler images of the bilateral lower ex tremity veins were obtained. COMPARISON: None. FINDINGS: The right common femoral vein, profunda (deep) femoral vein, femoral vein, popliteal vein, peroneal t runk, posterior tibial veins, and greater saphenous vein are patent. The left common femoral vein, profunda femoral vein, femoral vein, popliteal vein, peroneal trunk, po sterior tibial veins, and greater saphenous vein are patent. IMPRESSION: 1. Patent bilateral lower extremity veins. No evidence of deep venous thrombosis. Reviewed, dictated and finalized at location K. IMPRESSION: 1. Patent bilateral lower extremity veins. No evidence of deep venous thrombos is.
--- NOTE | ~2021-06-21 | XR_ITS ---
EXAMINATION: XR chest 2V Exam Date/Time: 06/21/2021 15:20 CDT CLINICAL HISTORY: bilateral lower extremity edema since 12/30, hx asthma, copd Comparison: 06/14/2020.. RESULT: Lines, tubes, and devices: None. Lungs and pleura: Clear. Cardiomediastinal silhouette: Stable cardiomediastinal silhouette. Other: No acute osseous or upper abdominal finding. IMPRESSION: No acute cardiopulmonary process Reviewed, dictated and finalized at location K.
[2021-06-21 15:12] LABS: Basophils Absolute Auto 0.1 K/mm3 (0.0-0.1); Basophils Percent Auto 0.8 % (0.2-1.2); Eosinophils Absolute Auto 0.2 K/mm3 (0-0.3); Eosinophils Percent Auto 2.6 % (0-4.4); Hematocrit 39.5 % (37.0-47.0); Hemoglobin 11.3 g/dL (12.0-15.0); Immature Granulocyte Absolute 0.03 K/mm3 (0.00-0.031); Immature Granulocyte Percent A 0.5 % (0-0.5); Lymphocytes Absolute Auto 1.66 K/mm3 (0.9-3.2); Lymphocytes Percent Auto 25.9 % (18.3-44.2); Mean Corpuscular HGB Conc 28.6 g/dl (32-36); Mean Platelet Volume 11.4 fl (7.4-10.4); Monocytes Absolute Auto 0.4 K/mm3 (0.1-0.6); Monocytes Percent Auto 6.7 % (2.6-8.5); Neutrophils Absolute Auto 4.1 K/mm3 (1.3-6.7); Neutrophils Percent Auto 63.5 % (45.5-73.1); Platelet Count Result 150 k/mm3 (150-375); Red Cell Distribution Width 15.7 % (11.5-14.5); White Blood Count 6.4 K/mm3 (4.5-10.0)
[2021-06-21 15:36] LABS: Alanine Aminotransferase 33 U/L (4-35); Albumin Level 4.6 g/dL (3.5-5.1); Alkaline Phosphatase 87 U/L (38-126); Anion Gap 4 mmol/L (8-16); Aspartate Amino Transferase 35 U/L (14-36); Bilirubin,Total 0.4 mg/dL (0.2-1.3); Blood Urea Nitrogen 20 mg/dL (7-17); Calcium 9.7 mg/dL (8.4-10.2); Carbon Dioxide 38 mmol/L (22-30); Chloride 97 mmol/L (98-107); Estimated CRCL calculation 68 ml/min; Estimated Glomerular Filt Rate > 60; Glucose 184 mg/dL (65-110); Sodium 139 mmol/L (137-145)
--- NOTE | 2021-06-21 15:36 | ED.EXTPRO ---
HPI - Extremity Problem General Chief complaint: Extremity Problem,Nontraumatic Stated complaint: BLE edema Time Seen by Provider: 06/21/21 15:05 Source: patient Mode of arrival: ambulatory Limitations: no limitations History of Present Illness HPI Narrative: This is a 70 year old female that presents to the ER for lower extremity edema present over the last 6 months. Reports recently she feels as though it is not responding to her Lasix as well as it used to. Reports redness to the right lower extremity that has been present over the same period of time and has not changed. Denies fever, chest pain or shortness of breath. Related Data Home Medications Medication Instructions Recorded Confirmed Jardiance 10 mg PO DAILY 05/02/19 05/02/19 Lantus Solostar U-100 Insulin 55 unit SUBCUT DAILY 05/02/19 05/02/19 atorvastatin 40 mg PO DAILY 05/02/19 05/02/19 diltiazem HCl [DILT-XR] 180 mg PO DAILY 05/02/19 05/02/19 fluoxetine 20 mg PO DAILY 05/02/19 05/02/19 furosemide 40 mg PO BID 05/02/19 05/02/19 metformin 1,000 mg PO DAILY 05/02/19 05/02/19 montelukast 10 mg PO DAILY 05/02/19 05/02/19 pregabalin 150 mg PO BID 05/02/19 05/02/19 sertraline 50 mg PO DAILY 05/02/19 05/02/19 Allergies Allergy/AdvReac Type Severity Reaction Status Date / Time lisinopril Allergy Severe ANGIOEDEMA Verified 06/14/20 08:28 Review of Systems Review of Systems: CONSTITUTIONAL: Denies fever CARDIOVASCULAR: Reports edema. Denies chest pain RESPIRATORY: Denies dyspnea. SKIN: Reports erythema All systems reviewed & are unremarkable except as noted in HPI and below PMFSH Past Medical History Medical History (Updated 06/21/21 @ 18:31 by Sia Richmond PA-C) Anxiety Arthritis Asthma Back pain Bronchitis Cataracts, bilateral CHF (congestive heart failure) COPD (chronic obstructive pulmonary disease) Depression GERD (gastroesophageal reflux disease) Hypertension Sleep apnea SVT (supraventricular tachycardia) Type 2 diabetes mellitus Surgical History Surgical History H/O: hysterectomy History of cataract surgery bilateral Hx of cholecystectomy Family History Family History Father Acute myocardial infarction Diabetes mellitus Mother Cerebrovascular accident Diabetes mellitus Sibling Diabetes mellitus Sibling Diabetes mellitus Sibling Diabetes mellitus Sibling Diabetes mellitus Sibling Diabetes mellitus Social History Social History Smoking packs per day: 1 Smoking cigarettes per day: 20.0 Years smoked: 30 Smoking pack-years: 30.00 Smoking status: Former smoker Alcohol intake: current Drinks per week: 1 Substance use: never Substance use type: does not use Gender identity (if verbalized by the patient): Female Spiritual care concerns: No Exam Narrative: GENERAL: Elderly, well-nourished, and in no acute distress. HEAD: Normocephalic, atraumatic. EYES: EOMI. ENT: Nares clear, no rhinorrhea or epistaxis. Mucous membranes moist. Oropharynx without tonsillar hypertrophy exudate or other lesions NECK: Supple. No adenopathy or masses. No carotid bruits or JVD CHEST: Clear to auscultation. No respiratory distress. No wheezes rales or rhonchi HEART: Regular rate and rhythm. No murmur heard. Normal peripheral pulses. EXTREMITIES: Normal range of motion. 1+ pitting edema to the bilateral lower extremities (R>L). There is a small area of erythema to the right anterior blanca. Normal DP pulses SKIN: Warm, dry, no rash. NEURO: No focal deficits. Alert and oriented x3. PSYCH: Normal mood and affect Course Vital Signs Vital signs: Vital Signs Pulse Rate 82 06/21/21 14:31 Respiratory Rate 18 06/21/21 14:31 Blood Pressure 152/68 H 06/21/21 14:31 Pulse Oximetry 95 06/21/21 14:31 Temperature 98.1 F 06/21/21 14:32 Puls
[2021-06-21 15:46] LABS: NT Pro B Type Natriuretic Pept 40 pg/mL (5-100)
[2021-06-21 16:05] LABS: Platelet Estimate Adequate (Adequate)
[2021-06-21 16:06] LABS: Anisocytosis 1+ (NORMAL); Hypochromasia 1+ (NORMAL)
[2021-06-21 16:07] LABS: D Dimer < 0.27 ug/mL (<0.48)
[2021-06-21 16:07] LABS: Erythrocyte Sedimentation Rate 57 mm/hr (0-20)
== END 2021-06-21 18:46 | disposition home or self-care (01) ==
PROVIDERS: Physician Assistant; Emergency Provider Emergency Medicine
DX: R60.0 Localized edema (principal); E11.9 Type 2 diabetes mellitus without complications; J45.909 Unspecified asthma, uncomplicated; I50.9 Heart failure, unspecified; I11.0 Hypertensive heart disease with heart failure; K21.9 Gastro-esophageal reflux disease without esophagitis; Z79.4 Long term (current) use of insulin; F41.9 Anxiety disorder, unspecified; Z79.84 Long term (current) use of oral hypoglycemic drugs; Z98.42 Cataract extraction status, left eye; Z98.41 Cataract extraction status, right eye; Z87.891 Personal history of nicotine dependence
CPT/HCPCS: 36415; 71046; 80053; 83880; 85025; 85380; 85652; 86140; 93970; 99284

== ENCOUNTER 2022-04-14 19:45 | Emergency (ER) | payer MEDICARE, MEDICAID, SELFPAY ==
--- NOTE | ~2022-04-14 | XR_ITS ---
EXAMINATION: XR chest 1V DATE: 04/14/2022 20:26 INDICATION: Shortness of breath. TECHNIQUE: A single frontal view of the chest was obtained. COMPARISON: Chest 2 views 06/21/2021, CT abdomen and pelvis 05/26/2016 FINDINGS: There is mild atelectasis in the lower lung zones. No pleural effusion or pneumothorax. Car diomegaly is noted. IMPRESSION: 1. Mild atelectasis in the lower lung zones. 2. Cardiomegaly. Reviewed, dictated and finalized at location A. 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
--- NOTE | 2022-04-14 19:52 | ED.URI ---
HPI - URI/Sore Throat General Chief Complaint: Shortness of Breath/Dyspnea Stated Complaint: sob/weakness Time Seen by Provider: 04/14/22 20:10 Source: patient and RN notes reviewed Mode of arrival: ambulatory Limitations: no limitations History of Present Illness HPI Narrative: 71-year-old female presents with concern for generalized weakness and worsening shortness of breath. She reports symptoms worsened yesterday. She is unable to give me a time of when her symptoms started, she is a poor historian. She is reports she does not feel well. Patient is on 2 L nasal cannula at baseline. Reports general body aches. Reports some mild cough. She denies nasal congestion, rhinorrhea, sore throat, chest pain, nausea, vomiting, diarrhea. She denies any known sick contacts. Patient is a poor historian MD elicited complaint: fever and cough Related Data Home Medications Medication Instructions Recorded Confirmed atorvastatin 40 mg tablet 40 mg PO DAILY 05/02/19 04/14/22 diltiazem HCl 180 mg 180 mg PO DAILY 05/02/19 04/14/22 capsule,extended release 24 hr, controlled (DILT-XR) empagliflozin 10 mg tablet 10 mg PO DAILY 05/02/19 04/14/22 (Jardiance) fluoxetine 20 mg capsule 20 mg PO DAILY 05/02/19 04/14/22 furosemide 40 mg tablet 40 mg PO BID 05/02/19 04/14/22 insulin glargine 100 unit/mL (3 55 unit subcut DAILY 05/02/19 04/14/22 mL) subcutaneous pen (Lantus Solostar U-100 Insulin) metformin 500 mg tablet,extended 1,000 mg PO DAILY 05/02/19 04/14/22 release 24 hr montelukast 10 mg tablet 10 mg PO DAILY 05/02/19 04/14/22 pregabalin 150 mg capsule 150 mg PO BID 05/02/19 04/14/22 sertraline 50 mg tablet 50 mg PO DAILY 05/02/19 04/14/22 Allergies Allergy/AdvReac Type Severity Reaction Status Date / Time lisinopril Allergy Severe ANGIOEDEMA Verified 04/14/22 19:47 Review of Systems Review of Systems: CONSTITUTIONAL: Reports malaise EYES: Denies visual changes, redness, or discharge. ENT: Reports rhinorrhea, congestion, sinus pain, otalgia and sore throat. CARDIOVASCULAR: Denies chest pain, palpitations, or edema. RESPIRATORY: Reports occasional cough. Reports dyspnea. GASTROINTESTINAL: Denies abdominal pain, nausea, vomiting, diarrhea MUSCULOSKELETAL: Reports myalgia. All systems reviewed & are unremarkable except as noted in HPI and below PMFSH Past Medical History Medical History (Updated 04/14/22 @ 20:39 by Kathrin Colon NP) Anxiety Arthritis Asthma Back pain Bronchitis Cataracts, bilateral CHF (congestive heart failure) COPD (chronic obstructive pulmonary disease) Depression GERD (gastroesophageal reflux disease) Hypertension Sleep apnea SVT (supraventricular tachycardia) Type 2 diabetes mellitus Surgical History Surgical History H/O: hysterectomy History of cataract surgery bilateral Hx of cholecystectomy Family History Family History Father Acute myocardial infarction Diabetes mellitus Mother Cerebrovascular accident Diabetes mellitus Sibling Diabetes mellitus Sibling Diabetes mellitus Sibling Diabetes mellitus Sibling Diabetes mellitus Sibling Diabetes mellitus Social History Social History Smoking packs per day: 1 Smoking cigarettes per day: 20.0 Years smoked: 30 Smoking pack-years: 30.00 Smoking status: Former smoker Alcohol intake: current Drinks per week: 1 Substance use: never Substance use type: does not use Gender identity (if verbalized by the patient): Female Spiritual care concerns: No Comments At time of signature, agree with nursing past medical, surgical, social and family history. There is no relevant family history pertinent to the presenting complaint Exam Narrative: GENERAL: Nontoxic-appearing and in no acute distress. HEAD: Normocephalic EYES
[2022-04-14 19:57] VITALS: BP 155/62; PULSE 90; RESP 18; TEMP 38.2; O2SAT 98
== END 2022-04-14 20:35 | disposition short-term general hospital (02) ==
PROVIDERS: Emergency Provider Nurse Practitioner
DX: R06.02 Shortness of breath (principal); Z20.822 Contact with and (suspected) exposure to COVID-19; Z87.891 Personal history of nicotine dependence; M19.90 Unspecified osteoarthritis, unspecified site; J45.909 Unspecified asthma, uncomplicated; I11.0 Hypertensive heart disease with heart failure; I50.9 Heart failure, unspecified; K21.9 Gastro-esophageal reflux disease without esophagitis; E11.9 Type 2 diabetes mellitus without complications; F41.9 Anxiety disorder, unspecified; F32.A Depression, unspecified; Z98.42 Cataract extraction status, left eye; Z98.41 Cataract extraction status, right eye
CPT/HCPCS: 71045; 87081; 87426; 87804; 87880; 99213; C9803; G0463

== ENCOUNTER 2022-04-14 21:03 | Emergency (ER) | payer MEDICARE, MEDICAID, SELFPAY ==
[2022-04-14 21:04] VITALS: BP 124/59; PULSE 93; RESP 22; TEMP 38.4; O2SAT 97
[2022-04-14 22:37] VITALS: O2SAT 98
[2022-04-14 22:38] LABS: Hematocrit 35.3 % (37.0-47.0); Hemoglobin 10.3 g/dL (12.0-15.0); Immature Platelet Fraction Pct 6.5 % (0.9-11.2); Mean Corpuscular HGB Conc 29.2 g/dl (32-36); Mean Corpuscular Hemoglobin 23.8 pg (26-34); Mean Corpuscular Volume 81.5 fl (80-100); Mean Platelet Volume 12.5 fl (7.4-10.4); Platelet Count Result 108 k/mm3 (150-375); Red Blood Count 4.33 M/mm3 (4.2-5.4); Red Cell Distribution Width 14.8 % (11.5-14.5); White Blood Count 2.6 K/mm3 (4.5-10.0)
--- NOTE | 2022-04-14 22:51 | ED.GENADULT ---
HPI - General Adult General Chief complaint: Shortness of Breath/Dyspnea Stated complaint: SOB Time Seen by Provider: 04/14/22 21:54 History of Present Illness HPI narrative: 71-year-old female presenting to the emergency department for evaluation of increased generalized weakness. Patient reports that she began feeling poorly yesterday. Patient is normally on 2 L of oxygen. Patient presented to the urgent care for evaluation. Patient states that she was having some increased generalized weakness. Patient denied any pain with urination. Patient denied any chest pain or shortness of breath. Patient is normally on 2 L of oxygen nasal cannula and is still saturating at this. Related Data Home Medications Medication Instructions Recorded Confirmed atorvastatin 40 mg tablet 40 mg PO DAILY 05/02/19 04/14/22 diltiazem HCl 180 mg 180 mg PO DAILY 05/02/19 04/14/22 capsule,extended release 24 hr, controlled (DILT-XR) empagliflozin 10 mg tablet 10 mg PO DAILY 05/02/19 04/14/22 (Jardiance) fluoxetine 20 mg capsule 20 mg PO DAILY 05/02/19 04/14/22 furosemide 40 mg tablet 40 mg PO BID 05/02/19 04/14/22 insulin glargine 100 unit/mL (3 55 unit subcut DAILY 05/02/19 04/14/22 mL) subcutaneous pen (Lantus Solostar U-100 Insulin) metformin 500 mg tablet,extended 1,000 mg PO DAILY 05/02/19 04/14/22 release 24 hr montelukast 10 mg tablet 10 mg PO DAILY 05/02/19 04/14/22 pregabalin 150 mg capsule 150 mg PO BID 05/02/19 04/14/22 sertraline 50 mg tablet 50 mg PO DAILY 05/02/19 04/14/22 Allergies Allergy/AdvReac Type Severity Reaction Status Date / Time lisinopril Allergy Severe ANGIOEDEMA Verified 04/14/22 19:47 Review of Systems Review of Systems: CONSTITUTIONAL: See HPI EYES: Denies visual changes, redness, or discharge. ENT: Denies rhinorrhea, congestion, sore throat, or otalgia. CARDIOVASCULAR: Denies chest pain, palpitations, or edema. RESPIRATORY: Denies cough or dyspnea. GASTROINTESTINAL: Denies abdominal pain, nausea, vomiting, or diarrhea. GENITOURINARY: Denies dysuria or hematuria. SKIN: Denies rash or itching. MUSCULOSKELETAL: Denies back pain, joint pain, or myalgia. NEUROLOGIC: Denies headache, numbness, or weakness. [facility] Past Medical History Medical History (Updated 04/15/22 @ 00:00 by Background Daemlizbeth) Anxiety Arthritis Asthma Back pain Bronchitis Cataracts, bilateral CHF (congestive heart failure) COPD (chronic obstructive pulmonary disease) Depression GERD (gastroesophageal reflux disease) Hypertension Sleep apnea SVT (supraventricular tachycardia) Type 2 diabetes mellitus Surgical History Surgical History H/O: hysterectomy History of cataract surgery bilateral Hx of cholecystectomy Family History Family History Father Acute myocardial infarction Diabetes mellitus Mother Cerebrovascular accident Diabetes mellitus Sibling Diabetes mellitus Sibling Diabetes mellitus Sibling Diabetes mellitus Sibling Diabetes mellitus Sibling Diabetes mellitus Social History Social History Smoking packs per day: 1 Smoking cigarettes per day: 20.0 Years smoked: 30 Smoking pack-years: 30.00 Smoking status: Former smoker Alcohol intake: current Drinks per week: 1 Substance use: never Substance use type: does not use Gender identity (if verbalized by the patient): Female Spiritual care concerns: No Exam Narrative: APPEARANCE: Well appearing, no pain, no distress, well-nourished. HEAD: normocephalic, atraumatic. EYES: PERRLA/EOMI, conjunctivae clear. NOSE: Normal no drainage NECK: Supple. No adenopathy, no masses. RESPIRATORY: Airway patent, respirations nonlabored. Clear to auscultation bilaterally, no rales, rhonchi, wheezing. CARDIOVASCULAR: Regular rate and rhythm without murmurs rub
[2022-04-14 22:55] LABS: Alanine Aminotransferase 76 U/L (6-35); Albumin Level 3.9 g/dL (3.5-5.1); Alkaline Phosphatase 94 U/L (38-126); Anion Gap 3 mmol/L (8-16); Aspartate Amino Transferase 65 U/L (14-36); Bilirubin,Total 0.4 mg/dL (0.2-1.3); Blood Urea Nitrogen 12 mg/dL (7-17); Calcium 9.6 mg/dL (8.4-10.2); Carbon Dioxide 37 mmol/L (22-30); Chloride 98 mmol/L (98-107); Estimated CRCL calculation 55 ml/min; Estimated Glomerular Filt Rate > 60; Glucose 194 mg/dL (65-110); Potassium 4.3 mmol/L (3.4-5.0); Sodium 138 mmol/L (137-145)
[2022-04-14 23:01] VITALS: BP 145/70; O2SAT 97
[2022-04-14 23:04] LABS: NT Pro B Type Natriuretic Pept 47 pg/mL (19.9-100)
--- NOTE | 2022-04-14 23:16 | PC.NURSE ---
Report received from LILO Mcbride. Assumed care of patient at this time.
[2022-04-14 23:17] VITALS: O2SAT 96
[2022-04-14 23:19] LABS: Influenza A QL RT-PCR Negative (Negative); Influenza B QL RT-PCR Negative (Negative); RSV RNA, RT-PCR Negative (Negative); SARS-CoV-2 RNA PCR Negative
[2022-04-14 23:30] VITALS: O2SAT 97
[2022-04-14 23:31] LABS: Anisocytosis 2+ (NORMAL); Band Neutrophils Percent 13 % (0-6); Eosinophils Absolute Manual 0.13 K/mm3 (0.02-0.5); Eosinophils Percent Manual 5 % (0-4); Microcytosis 2+ (NORMAL); Monocytes Percent Manual 8 % (3-9); Myelocytes Percent 4 %; Neutrophils Absolute Manual 1.45 K/mm3 (1.7-7.2); Neutrophils Percent Manual 43 % (46-73); Platelet Estimate Decreased (Adequate); Poikilocytosis 1+ (NORMAL); Total Cells Counted 100
[2022-04-14 23:32] LABS: Atypical Lymphocytes Present; Hypochromasia 2+ (NORMAL); Schistocytes None Seen (NORMAL); Stomatocytes 2+ (NORMAL); Tear Drop Cells 1+ (NORMAL)
[2022-04-14 23:33] LABS: Ovalocytes 1+ (NORMAL)
[2022-04-14 23:45] VITALS: RESP 17; TEMP 37.8; O2SAT 100
[2022-04-14 23:46] LABS: Appearance Urine Clear (Clear); Bilirubin Urine Negative (Negative); Blood Urine Negative (Negative); Color Urine Yellow (Yellow); Glucose Urine UA Negative (Negative); Ketones Urine Negative (Negative); Leukocyte Esterase Ur Negative LEU/UL (Negative); Nitrate Urine Negative (Negative); Protein Urine 1+ mg/dL (Negative); Urobilinogen Urine 0.2 mg/dL (<2.0)
[2022-04-14 23:57] LABS: Bacteria Urine Trace /hpf; Mucus Urine Rare /lpf; RBC Urine 0-2 /hpf (0-2); Squamous Epithelial Cell Urine Few /hpf (Few)
[2022-04-15 00:01] LABS: Add Urine Microscopic? YES
[2022-04-15] MEDS: ACETAMINOPHEN 500 MG TABLET 1000 MG PO (00:17)
== END 2022-04-15 00:36 | disposition home or self-care (01) ==
PROVIDERS: Emergency Provider Emergency Medicine
DX: R53.1 Weakness (principal); Z20.822 Contact with and (suspected) exposure to COVID-19; J44.9 Chronic obstructive pulmonary disease, unspecified; I50.9 Heart failure, unspecified; I11.0 Hypertensive heart disease with heart failure; E11.9 Type 2 diabetes mellitus without complications; K21.9 Gastro-esophageal reflux disease without esophagitis; G47.30 Sleep apnea, unspecified; M19.90 Unspecified osteoarthritis, unspecified site; Z99.81 Dependence on supplemental oxygen; Z90.710 Acquired absence of both cervix and uterus; Z98.42 Cataract extraction status, left eye; Z98.41 Cataract extraction status, right eye; Z87.891 Personal history of nicotine dependence; Z79.84 Long term (current) use of oral hypoglycemic drugs; Z79.4 Long term (current) use of insulin
CPT/HCPCS: 36415; 71045; 80053; 81001; 83880; 85025; 85055; 87081; 87426; 87637; 87804; 87880; 99283; A9270; C9803

== ENCOUNTER 2022-06-06 23:54 | Inpatient (IN) | payer MEDICARE, MEDICAID, SELFPAY ==
--- NOTE | ~2022-06-06 | XR_ITS ---
Portable chest x-ray Comparison: 04/14/2022 Clinical History: Shortness of breath Findings: Probable minimal bibasilar pulmonary edema/atelectasis. No pleural effusion or pneumothora x. Cardiomediastinal silhouette is stable. Bones and soft tissues are unremarkable. Impression: Minimal bibasilar pulmonary edema/atelectasis. Reviewed, dictated and finalized at location . Impression: Minimal bibasilar pulmonary edema/atelectasis.
--- NOTE | ~2022-06-06 | CT_ITS ---
Non-contrast Head CT History: Altered mental status COMPARISON: 11/06/2015 Technique: Axial non-contrast imaging of the brain was performed. Dose reduction technique was used on this scan by utilizing automated exposure control and iterative reconstruction technique. The dose -length product (DLP) was 756.67 mGy-cm. Findings: There is no evidence of intracranial hemorrhage, mass lesion, or acute infarct. Brain par enchyma appears normal. The ventricles and subarachnoid spaces are normal in size. The calvarium ap pears normal. The visualized paranasal sinuses and mastoid air cells are clear. Impression: No significant abnormality seen. Reviewed, dictated and finalized at location . Impression: No significant abnormality seen.
[2022-06-07] VITALS (28 sets, daily range): BP systolic 109–149; BP diastolic 36–87; PULSE 59–98; RESP 14–33; TEMP 36–37.1; O2SAT 91–100; BMI 38.6
--- NOTE | 2022-06-07 | ECHO_ITS ---
Patient Info Name: Abbie Painter Age: 71 years : 1950 Gender: Female Ht: 66 in Wt: 239 lbs BSA: 2.30 m2 HR: 78 bpm BP: 109 / 36 mmHg Technical Quality: Fair Exam Date: 06/07/2022 3:44 PM Exam Location: [facility] Pulmonary Exam Room: ICU11 Patient Status: Inpatient Admit Date: 06/07/2022 Staff Ordering Physician: Mable Polk MD [employer] Technician: Abbie Lindsay RDCS Attending Provider: Hal Myles MD Exam Type: CA echo doppler color flow Study Info Indications - SHORTNESS OF BREATH Complete two-dimensional, color flow and Doppler transthoracic echocardiogram is performed. Summary 1. Complete two-dimensional, color flow and Doppler transthoracic echocardiogram is performed. 2. Left ventricular chamber dimension is normal. 3. Left ventricular systolic function is hyperdynamic, estimated at >70%. 4. There is mild concentric increased left ventricular wall thickness. 5. The left ventricular diastolic function is grade I diastolic dysfunction. 6. E/e' 16 is elevated. 7. There is mild aortic valve sclerosis. 8. The mitral valve has moderately calcified annulus. 9. No pulmonary hypertension, estimated pulmonary arterial systolic pressure is 25 mmHg. Left Ventricle E/e' 16 is elevated. Left ventricular chamber dimension is normal. Left ventricular systolic function is hyperdynamic, estimated at >70%. There is mild concentric increased left ventricular wall thickness. The left ventricular diastolic function is grade I diastolic dysfunction. Right Ventricle Right ventricular chamber dimension is normal. Right ventricular systolic function is normal. Left Atria Left atrial chamber dimension is normal. Right Atria Right atrial chamber dimension is normal. Aortic Valve The aortic valve is trileaflet. There is mild aortic valve sclerosis. There is no aortic valve stenosis. There is no aortic valve regurgitation. Pulmonic Valve There is no pulmonic regurgitation. Mitral Valve The mitral valve has moderately calcified annulus. There is no mitral valve stenosis. There is no mitral valve regurgitation. Tricuspid Valve There is no tricuspid valve regurgitation. No pulmonary hypertension, estimated pulmonary arterial systolic pressure is 25 mmHg. Pericardium/Pleural There is no pericardial effusion. Inferior Vena Cava Normal inferior vena cava with >50% collapse upon inspiration consistent with normal right atrial pressure, 5 mmHg. Aorta The aortic root size at the sinus of Valsalva is normal. Left Ventricular Outflow Tract Name Value Normal LVOT 2D LVOT Diameter 2.1 cm LVOT Doppler LVOT Peak Gradient 5 mmHg LVOT Mean Gradient 4 mmHg LVOT VTI 26 cm LVOT VTI/AV VTI Ratio 0.8 LVOT Stroke Volume 89 ml LVOT CO 19.4 l/min LVOT CI 8.4 l/min/m2 Pulmonic Valve Name
--- NOTE | 2022-06-07 00:04 | ECG_ITS ---
Measurements Intervals [place] Rate: 70 P: 49 MD: 199 QRS: -14 QRSD: 95 T: 38 QT: 433 QTc: 468 Interpretive Statements SINUS RHYTHM POSSIBLE LEFT ATRIAL ENLARGEMENT DELAYED PRECORDIAL R/S TRANSITION LOW QRS VOLTAGE IN PRECORDIAL LEADS BORDERLINE ECG COMPARED TO ECG 06/14/2020 08:26:43 SINUS RHYTHM NOW PRESENT Electronically Signed On 06-07-2022 6:40:30 CDT by Michael Segal D.O.
[2022-06-07 00:27] LABS: Basophils Percent Auto 0.6 % (0.2-1.2); Eosinophils Absolute Auto 0.2 K/mm3 (0-0.3); Eosinophils Percent Auto 2.4 % (0-4.4); Hematocrit 37.9 % (37.0-47.0); Hemoglobin 11.3 g/dL (12.0-15.0); Immature Granulocyte Absolute 0.02 K/mm3 (0.00-0.031); Immature Granulocyte Percent A 0.3 % (0-0.5); Immature Platelet Fraction Pct 8.2 % (0.9-11.2); Lymphocytes Absolute Auto 1.74 K/mm3 (0.9-3.2); Lymphocytes Percent Auto 28.2 % (18.3-44.2); Mean Corpuscular HGB Conc 29.8 g/dl (32-36); Mean Corpuscular Hemoglobin 23.9 pg (26-34); Mean Corpuscular Volume 80.1 fl (80-100); Mean Platelet Volume 12.3 fl (7.4-10.4); Monocytes Absolute Auto 0.5 K/mm3 (0.1-0.6); Monocytes Percent Auto 7.8 % (2.6-8.5); Neutrophils Absolute Auto 3.7 K/mm3 (1.3-6.7); Neutrophils Percent Auto 60.7 % (45.5-73.1); Platelet Count Result 149 k/mm3 (150-375); Red Blood Count 4.73 M/mm3 (4.2-5.4); Red Cell Distribution Width 15.6 % (11.5-14.5); White Blood Count 6.2 K/mm3 (4.5-10.0)
--- NOTE | 2022-06-07 00:30 | PC.NURSE ---
pt. to CT
[2022-06-07 00:36] LABS: INR 1.3; Prothrombin Time 15.6 Seconds (11.1-14.7)
[2022-06-07 00:37] LABS: Partial Thromboplastin Time 31.9 SECONDS (22.3-36.8)
[2022-06-07 00:39] LABS: Alanine Aminotransferase 73 U/L (6-35); Alkaline Phosphatase 89 U/L (38-126); Anion Gap 7 mmol/L (8-16); Aspartate Amino Transferase 72 U/L (14-36); Bilirubin,Total 0.8 mg/dL (0.2-1.3); Blood Urea Nitrogen 28 mg/dL (7-17); Calcium 10.7 mg/dL (8.4-10.2); Carbon Dioxide 33 mmol/L (22-30); Chloride 100 mmol/L (98-107); Estimated Glomerular Filt Rate > 60; Glucose 198 mg/dL (65-110); Potassium 4.5 mmol/L (3.4-5.0); Sodium 140 mmol/L (137-145)
[2022-06-07] MEDS: SODIUM CHLORIDE 0.9% IV 1,000 ML 999 ML IV CONT (00:44)
[2022-06-07] MEDS: ONDANSETRON INJ 4 MG/2 ML VIAL IV PUSH (00:45)
[2022-06-07 00:47] LABS: Appearance Urine Cloudy (Clear); Bacteria Urine None Seen /hpf; Bilirubin Urine Negative (Negative); Blood Urine Negative (Negative); Color Urine Yellow (Yellow); Glucose Urine UA 3+ mg/dL (Negative); Ketones Urine Negative (Negative); Leukocyte Esterase Ur Negative LEU/UL (Negative); Need Manual Microscopic Reviewed; Nitrate Urine Negative (Negative); Non Pathogenic Casts 0-2; Protein Urine Negative (Negative); Specific Grav Ur 1.017 (1.001-1.035); Squamous Epithelial Cell Urine Occasional /hpf (Few); Urobilinogen Urine 0.2 mg/dL (<2.0); WBC Urine 0-5 /hpf
[2022-06-07 00:53] LABS: Add Urine Microscopic? YES
[2022-06-07 01:05] LABS: Lactic Acid Reflex 1.9 mmol/L (0.7-2.0)
[2022-06-07 01:11] LABS: Lipase 201 U/L (23-300); Magnesium 2.1 mg/dL (1.6-2.3)
[2022-06-07 01:17] LABS: Base Excess ABG 4.7 mEq/l (+/-2.0); HCO3 ABG 33.3 mEq/l (22.0-26.0); Oxygen Content ABG 15.4 %vol (16.0-22.0); Oxygen Saturation ABG 94.7 % (95.0-100.0); Oxyhemoglobin 93.6 % THb (90.0-100.0); PO2 ABG 84.5 mmHg (80.0-100.0); PO2 FiO2 Ratio Arterial Blood 4.22 %; Total Hemoglobin 11.6 g/dL (12.0-18.0)
[2022-06-07 01:17] LABS: Troponin I 0.024 ng/mL (0.000-0.034)
[2022-06-07 01:18] LABS: pH ABG 7.279 (7.350-7.450)
[2022-06-07 01:19] LABS: Fractional Inspired Oxygen 28 %; PCO2 ABG 72.7 mmHg (35.0-45.0)
[2022-06-07 01:20] LABS: Device NASAL CANNULA; Modified Allen's Test Pass; Site Drawn RIGHT RADIAL
[2022-06-07] MEDS: PROCHLORPERAZINE EDISYLATE 10 MG/2 ML VIAL IV PUSH (01:45)
[2022-06-07 03:23] LABS: Base Excess ABG 2.2 mEq/l (+/-2.0); Fractional Inspired Oxygen 30 %; HCO3 ABG 30.6 mEq/l (22.0-26.0); Oxygen Content ABG 15.3 %vol (16.0-22.0); Oxygen Saturation ABG 95.1 % (95.0-100.0); Oxyhemoglobin 94.2 % THb (90.0-100.0); PO2 ABG 87.5 mmHg (80.0-100.0); PO2 FiO2 Ratio Arterial Blood 2.92 %; Total Hemoglobin 11.5 g/dL (12.0-18.0)
[2022-06-07 03:25] LABS: PCO2 ABG 68.4 mmHg (35.0-45.0); pH ABG 7.269 (7.350-7.450)
[2022-06-07 03:27] LABS: Device NON-INVASIVE VENT; Modified Allen's Test Pass; Site Drawn RIGHT RADIAL
[2022-06-07 03:28] LABS: Non-Invasive Expiratory Pressure 8 CMH2O; Non-Invasive Inspiratory Pressure 20 CMH2O; Non-Invasive Vent Rate 20 /MIN
--- NOTE | 2022-06-07 03:38 | ED.GENADULT ---
HPI - General Adult General Chief complaint: Altered Mental Status Stated complaint: vomiting Time Seen by Provider: 06/07/22 00:22 History of Present Illness HPI narrative: Patient is a 71-year-old female who presents emergency department with chief complaint of shortness of breath and decreased responsiveness. Patient has history of COPD and CHF and is currently on 2 L nasal cannula. Patient reports that this evening she had an episode of vomiting and then I decided to go lay down and then when she got up she felt short of breath the patient denies chest pain Related Data Home Medications Medication Instructions Recorded Confirmed atorvastatin 40 mg tablet 40 mg PO DAILY 05/02/19 04/14/22 diltiazem HCl 180 mg 180 mg PO DAILY 05/02/19 04/14/22 capsule,extended release 24 hr, controlled (DILT-XR) empagliflozin 10 mg tablet 10 mg PO DAILY 05/02/19 04/14/22 (Jardiance) fluoxetine 20 mg capsule 20 mg PO DAILY 05/02/19 04/14/22 furosemide 40 mg tablet 40 mg PO BID 05/02/19 04/14/22 insulin glargine 100 unit/mL (3 55 unit subcut DAILY 05/02/19 04/14/22 mL) subcutaneous pen (Lantus Solostar U-100 Insulin) metformin 500 mg tablet,extended 1,000 mg PO DAILY 05/02/19 04/14/22 release 24 hr montelukast 10 mg tablet 10 mg PO DAILY 05/02/19 04/14/22 pregabalin 150 mg capsule 150 mg PO BID 05/02/19 04/14/22 sertraline 50 mg tablet 50 mg PO DAILY 05/02/19 04/14/22 Allergies Allergy/AdvReac Type Severity Reaction Status Date / Time lisinopril Allergy Severe ANGIOEDEMA Verified 04/14/22 19:47 Review of Systems Review of Systems: A 10 system review of systems was completed on the patient and is negative except for what is stated in the HPI. Nursing and ancillary documentation was reviewed. [facility] Past Medical History Medical History (Updated 06/07/22 @ 03:44 by Ab Luo MD) Anxiety Arthritis Asthma Back pain Bronchitis Cataracts, bilateral CHF (congestive heart failure) COPD (chronic obstructive pulmonary disease) Depression GERD (gastroesophageal reflux disease) Hypertension Sleep apnea SVT (supraventricular tachycardia) Type 2 diabetes mellitus Surgical History Surgical History H/O: hysterectomy History of cataract surgery bilateral Hx of cholecystectomy Family History Family History Father Acute myocardial infarction Diabetes mellitus Mother Cerebrovascular accident Diabetes mellitus Sibling Diabetes mellitus Sibling Diabetes mellitus Sibling Diabetes mellitus Sibling Diabetes mellitus Sibling Diabetes mellitus Social History Social History Smoking packs per day: 1 Smoking cigarettes per day: 20.0 Years smoked: 30 Smoking pack-years: 30.00 Smoking status: Former smoker Alcohol intake: current Drinks per week: 1 Substance use: never Substance use type: does not use Gender identity (if verbalized by the patient): Female Spiritual care concerns: No Exam Narrative: GENERAL: Ill -appearing, well-nourished, and in no acute distress. HEAD: Normocephalic, atraumatic. EYES: PERRLA and EOMI. ENT: Nares clear, no rhinorrhea or epistaxis. Mucous membranes moist. NECK: Supple. CHEST: Diminished to auscultation. No respiratory distress. HEART: Regular rate and rhythm. No murmur heard. Normal peripheral pulses. ABDOMEN: Soft, nontender, nondistended, normal active bowel sounds. EXTREMITIES: Normal range of motion. No edema. SKIN: Warm, dry, no rash. NEURO: No focal deficits. Alert and oriented x3. PSYCH: Normal mood and affect. Course Vital Signs Vital signs: Vital Signs Temperature 37.0 C 06/07/22 00:00 Pulse Rate 73 06/07/22 00:00 Respiratory Rate 14 06/07/22 00:00 Blood Pressure 146/63 H 06/07/22 00:00 Pulse Oximetry 92
[2022-06-07] MEDS: methylPREDNISolone SOD SUCC 125 MG VIAL IV PUSH (04:06)
--- NOTE | 2022-06-07 04:45 | ADMGEN ---
This patient, Abbie Painter, was admitted to Intensive Care Unit-11. Patient/family oriented to hospital policies and general routines including ID bracelet, bed and alarms, visiting hours, pain management, procedures, bathroom and other care routines, personal items, smoking policy, room service/diet, and visiting hours. Information on how to activate the Rapid Response Team has been discussed. Patient/Family are encouraged to report perceived risks to care and to ask questions if they do not understand what they are told or what they should do.
[2022-06-07 08:15] LABS: Glucose Point of Care 233 mg/dl (65-105)
[2022-06-07 08:18] LABS: NT Pro B Type Natriuretic Pept 57 pg/mL (19.9-100); Troponin I < 0.012 ng/mL (0.000-0.034)
[2022-06-07 08:58] LABS: Influenza A QL RT-PCR Negative (Negative); Influenza B QL RT-PCR Negative (Negative); SARS-CoV-2 RNA PCR Negative
--- NOTE | 2022-06-07 10:26 | PC.NURSE ---
Daughter Mehdi called, updated and all questions answered.
[2022-06-07 11:14] LABS: Alveolar/Arterial O2 Gradient 61.5 mmHg; Base Excess ABG 6.1 mEq/l (+/-2.0); Fractional Inspired Oxygen 30 %; HCO3 ABG 33.5 mEq/l (22.0-26.0); Oxygen Content ABG 15.8 %vol (16.0-22.0); Oxygen Saturation ABG 94.7 % (95.0-100.0); Oxyhemoglobin 94.1 % THb (90.0-100.0); PO2 ABG 78.8 mmHg (80.0-100.0); PO2 FiO2 Ratio Arterial Blood 2.63 %; Total Hemoglobin 11.9 g/dL (12.0-18.0); pH ABG 7.346 (7.350-7.450)
[2022-06-07 11:15] LABS: Device NON-INVASIVE VENT; Modified Allen's Test Pass; PCO2 ABG 62.6 mmHg (35.0-45.0); Site Drawn LEFT RADIAL
[2022-06-07 11:16] LABS: Non-Invasive Expiratory Pressure 8 CMH2O; Non-Invasive Inspiratory Pressure 20 CMH2O; Non-Invasive Vent Rate 26 /MIN
[2022-06-07 12:21] LABS: Glucose Point of Care 230 mg/dl (65-105)
[2022-06-07] MEDS: INSULIN ASPART (*BKC) 100 UNITS/ML SUB-Q ×2 (12:22→16:52)
[2022-06-07] MEDS: methylPREDNISolone SOD SUCC 125 MG VIAL 60 MG IV PUSH ×2 (14:17→21:13)
[2022-06-07 15:31] LABS: Alveolar/Arterial O2 Gradient 56.7 mmHg; Base Excess ABG 4.5 mEq/l (+/-2.0); Fractional Inspired Oxygen 28 %; Oxygen Content ABG 15.8 %vol (16.0-22.0); Oxygen Saturation ABG 92.1 % (95.0-100.0); Oxyhemoglobin 91.9 % THb (90.0-100.0); PO2 ABG 69.1 mmHg (80.0-100.0); PO2 FiO2 Ratio Arterial Blood 2.47 %; Total Hemoglobin 12.2 g/dL (12.0-18.0); pH ABG 7.327 (7.350-7.450)
[2022-06-07 15:32] LABS: Device NASAL CANNULA; Modified Allen's Test Pass; PCO2 ABG 62.6 mmHg (35.0-45.0); Site Drawn LEFT RADIAL
[2022-06-07] MEDS: RIVAROXABAN 20 MG TABLET PO (16:46)
[2022-06-07] MEDS: FUROSEMIDE INJ 40 MG/4 ML VIAL IV PUSH (16:46)
[2022-06-07 16:49] LABS: Glucose Point of Care 231 mg/dl (65-105)
[2022-06-07] MEDS: PREGABALIN (*CRX) 75 MG CAPSULE 150 MG PO (16:52)
[2022-06-07] MEDS: cloNIDine HCL 0.1 MG TABLET PO (16:52)
--- NOTE | 2022-06-07 18:19 | PM.IMHP ---
H&P: HPI History of Present Illness Date/Time: 06/07/22 18:19 Chief Complaint: Acute mental status change Narrative: ED-HPI narrative: Patient is a 71-year-old female who presents emergency department with chief complaint of shortness of breath and decreased responsiveness.? Patient has history of COPD and CHF and is currently on 2 L nasal cannula.? Patient reports that this evening she had an episode of vomiting and then I decided to go lay down and then when she got up she felt short of breath the patient denies chest pain patient stats she was eating hamburger and apparently chocked, felt short of breath, patient stats after few minutes she fell better and try lay down, however she did feel well and was more of short of breath, presented to ER upon arrival patient was hypoxic and ABG in ER showed hypercarbic respiratory failure with pCO2 of 72 and patient was placed on BIPAP. Review of Systems Review of Systems: A 10 system review of systems was completed on the patient and is negative except for what is stated in the HPI. Nursing and ancillary documentation was reviewed. [facility] Past Medical History Medical History (Updated 06/13/22 @ 15:42 by Mable Polk MD) Anxiety Arthritis Asthma Back pain Bronchitis Cataracts, bilateral CHF (congestive heart failure) COPD (chronic obstructive pulmonary disease) Depression GERD (gastroesophageal reflux disease) Hypertension Sleep apnea SVT (supraventricular tachycardia) Type 2 diabetes mellitus Surgical History Surgical History H/O: hysterectomy History of cataract surgery bilateral Hx of cholecystectomy Family History Family History Father Acute myocardial infarction Diabetes mellitus Mother Cerebrovascular accident Diabetes mellitus Sibling Diabetes mellitus Sibling Diabetes mellitus Sibling Diabetes mellitus Sibling Diabetes mellitus Sibling Diabetes mellitus Social History Social History Smoking packs per day: 1 Smoking cigarettes per day: 20.0 Years smoked: 30 Smoking pack-years: 30.00 Smoking status: Former smoker Alcohol intake: current Drinks per week: 1 Substance use: never Substance use type: does not use Lack of Transportation: No Lack of Food: Never True Current Housing: I Have Housing Concerned About Future Housing: Decline to Answer Difficulty Paying Gas/Electric Bills: Decline to Answer Difficulty Paying for Meds: Decline to Answer Currently Unemployed: Decline to Answer Education: Decline to Answer Difficulty w/ Childcare or Family Care: Decline to Answer Gender identity (if verbalized by the patient): Female Spiritual care concerns: No Meds Home Medications and Allergies Home Medications Medication Instructions Recorded Confirmed Type atorvastatin 40 mg tablet 40 mg PO HS 05/02/19 06/07/22 History diltiazem HCl 180 mg 180 mg PO DAILY 05/02/19 06/07/22 History capsule,extended release 24 hr, controlled (DILT-XR) empagliflozin 10 mg tablet 10 mg PO DAILY 05/02/19 06/07/22 History (Jardiance) fluoxetine 20 mg capsule 20 mg PO DAILY 05/02/19 06/07/22 History furosemide 40 mg tablet 40 mg PO BID 05/02/19 06/07/22 History insulin glargine 100 unit/mL (3 70 unit subcut HS 05/02/19 06/07/22 History mL) subcutaneous pen (Lantus Solostar U-100 Insulin) metformin 500 mg tablet,extended 1,000 mg PO DAILY 05/02/19 06/07/22 History release 24 hr montelukast 10 mg tablet 10 mg PO DAILY 05/02/19 06/07/22 History pregabalin 150 mg capsule 150 mg PO BID 05/02/19 06/07/22 History blood sugar diagnostic (True #1 ea 05/03/19 06/07/22 Rx Metrix Glucose Test Strip) omeprazole 40 mg capsule,delayed 40 mg PO DAILY #3 caps 05/03/19 06/07/22 Rx release pen needle, diabetic 31 gauge x #60
[2022-06-07] MEDS: INSULIN GLARGINE (*BKC) 100 UNITS/ML 40 UNITS SUB-Q (21:11)
[2022-06-07] MEDS: ATORVASTATIN 40 MG TABLET PO (21:12)
[2022-06-07] MEDS: PANTOPRAZOLE 40 MG TABLET PO (21:12)
[2022-06-07 21:22] LABS: Glucose Point of Care 261 mg/dl (65-105)
[2022-06-08] VITALS (10 sets, daily range): BP systolic 105–146; BP diastolic 56–73; PULSE 67–87; RESP 16–26; TEMP 36.9–37.1; O2SAT 91–100
[2022-06-08 05:12] LABS: Alveolar/Arterial O2 Gradient 49.6 mmHg; Base Excess ABG 5.3 mEq/l (+/-2.0); Fractional Inspired Oxygen 30 %; HCO3 ABG 31.8 mEq/l (22.0-26.0); Oxygen Content ABG 15.5 %vol (16.0-22.0); Oxygen Saturation ABG 97.2 % (95.0-100.0); Oxyhemoglobin 96.1 % THb (90.0-100.0); PCO2 ABG 56.1 mmHg (35.0-45.0); PO2 ABG 98.4 mmHg (80.0-100.0); PO2 FiO2 Ratio Arterial Blood 3.28 %; Total Hemoglobin 11.4 g/dL (12.0-18.0); pH ABG 7.371 (7.350-7.450)
[2022-06-08 05:14] LABS: Device BIPAP; Modified Allen's Test Pass; Site Drawn RIGHT RADIAL
[2022-06-08 05:15] LABS: Expiratory Pressure 8 cmH2O; Inspiratory Pressure 20 cmH2O
[2022-06-08] MEDS: methylPREDNISolone SOD SUCC 125 MG VIAL 60 MG IV PUSH (05:51)
[2022-06-08 08:53] LABS: Glucose Point of Care 240 mg/dl (65-105)
[2022-06-08] MEDS: INSULIN ASPART (*BKC) 100 UNITS/ML SUB-Q ×2 (09:40→11:55)
[2022-06-08] MEDS: dilTIAZem HCL CD 180 MG CAP.ER.24H PO (09:41)
[2022-06-08] MEDS: PANTOPRAZOLE 40 MG TABLET PO (09:41)
[2022-06-08] MEDS: PREGABALIN (*CRX) 75 MG CAPSULE 150 MG PO (09:41)
[2022-06-08] MEDS: FUROSEMIDE INJ 40 MG/4 ML VIAL IV PUSH (09:41)
[2022-06-08] MEDS: MONTELUKAST SODIUM 10 MG TABLET PO (09:41)
[2022-06-08] MEDS: EMPAGLIFLOZIN 10 MG TABLET PO (09:41)
[2022-06-08] MEDS: FLUoxetine HCL 20 MG CAPSULE PO (09:41)
[2022-06-08] MEDS: cloNIDine HCL 0.1 MG TABLET PO (09:42)
[2022-06-08 09:53] LABS: Hematocrit 35.7 % (37.0-47.0); Hemoglobin 10.5 g/dL (12.0-15.0); Mean Corpuscular HGB Conc 29.4 g/dl (32-36); Mean Corpuscular Hemoglobin 23.9 pg (26-34); Mean Corpuscular Volume 81.3 fl (80-100); Mean Platelet Volume 12.1 fl (7.4-10.4); Platelet Count Result 160 k/mm3 (150-375); Red Blood Count 4.39 M/mm3 (4.2-5.4); Red Cell Distribution Width 15.6 % (11.5-14.5); White Blood Count 6.5 K/mm3 (4.5-10.0)
[2022-06-08 10:12] LABS: Anion Gap 7 mmol/L (8-16); Blood Urea Nitrogen 26 mg/dL (7-17); Calcium 10.1 mg/dL (8.4-10.2); Carbon Dioxide 33 mmol/L (22-30); Chloride 99 mmol/L (98-107); Estimated CRCL calculation 71 ml/min; Estimated Glomerular Filt Rate > 60; Glucose 392 mg/dL (65-110); Magnesium 2.3 mg/dL (1.6-2.3); Potassium 4.4 mmol/L (3.4-5.0); Sodium 139 mmol/L (137-145)
[2022-06-08 11:55] LABS: Glucose Point of Care 384 mg/dl (65-105)
--- NOTE | 2022-06-08 12:39 | PM.DS ---
DS: Admitting Diagnosis Discharge Date 06/08/2022 Admitting Diagnosis Acute mental status change DS: Discharge Diagnosis Discharge Diagnosis (1) Acute hypercapnic respiratory failure: Code(s): J96.02 - Acute respiratory failure with hypercapnia Status: Acute Assessment and Plan: ED-[facility] narrative: Patient is a 71-year-old female who presents emergency department with chief complaint of shortness of breath and decreased responsiveness.? Patient has history of COPD and CHF and is currently on 2 L nasal cannula.? Patient reports that this evening she had an episode of vomiting and then I decided to go lay down and then when she got up she felt short of breath the patient denies chest pain patient stats she was eating hamburger and apparently chocked, felt short of breath, patient stats after few minutes she fell better and try lay down, however she did feel well and was more of short of breath, presented to ER upon arrival patient was hypoxic and ABG in ER showed hypercarbic respiratory failure with pCO2 of 72 and patient was placed on BIPAP. (2) COPD (chronic obstructive pulmonary disease): Code(s): J44.9 - Chronic obstructive pulmonary disease, unspecified Status: Acute Assessment and Plan: Patient with history of COPD patient remains clinically stable will continue to monitor. (3) CHF (congestive heart failure): Code(s): I50.9 - Heart failure, unspecified Status: Acute Assessment and Plan: Patient with history grade 1 diastolic dysfunction patient is being gently diuresed. DS: Summary Hospital Course Reason for hospitalization: Acute mental status change Narrative: ED-HPI narrative: Patient is a 71-year-old female who presents emergency department with chief complaint of shortness of breath and decreased responsiveness.? Patient has history of COPD and CHF and is currently on 2 L nasal cannula.? Patient reports that this evening she had an episode of vomiting and then I decided to go lay down and then when she got up she felt short of breath the patient denies chest pain patient stats she was eating hamburger and apparently chocked, felt? short of breath, patient stats after few minutes she fell better and try lay down, however she did feel well and was more of short of breath, presented to ER upon arrival patient was hypoxic and ABG in ER showed hypercarbic respiratory failure with pCO2 of 72 and patient was placed on BIPAP. Hospital Course: patient stats she was eating hamburger and apparently chocked, felt? short of breath, patient stats after few minutes she fell better and try lay down, however she did feel well and was more of short of breath, presented to ER upon arrival patient was hypoxic and ABG in ER showed hypercarbic respiratory failure with pCO2 of 72 and patient was placed on BIPAP. Today patient is clinically stable on her baseline has no complaints of chest pain or shortness of breath will will discharge the patient today. Time Spent with Patient Time attestation: Total time spent providing and/or coordinating discharge services: Exam Narrative: Patient is comfortable, NAD HEENT: eyes are clear and none icteric LUNGS:CTA HEART: RR S1S2 ABD: BS+, Soft and nontender Lower extremities: no edema SKIN: nonjaundiced Neuro: grossly intact. DS: Data Data Completed and Pending Labs on day of discharge: Labs from last 24 hours 06/08/22 06/08/22 06/08/22 11:22 09:43 09:43 WBC 6.5 RBC 4.39 Hgb 10.5 L Hct 35.7 L MCV 81.3 MCH 23.9 L MCHC 29.4 L RDW 15.6 H Plt Count 160 MPV 12.1 H Puncture Site ABG pH ABG pCO2 ABG pO2 ABG PO2/FiO2 Ratio ABG HCO3 ABG O2 Saturation ABG O2 Content ABG Base Excess A-a Gradient Oxyhemoglobin Total Hemoglobin O2 Delivery Device O2 Liters/Min FiO2 Expiratory Pressure Inspiratory Pressure Sodium 139 Potassium 4.4 Chlorid
== END 2022-06-08 11:25 | disposition home or self-care (01) | DRG 189 ==
LOC: ANHED 06-07 03:44 → ANHICU 06-07 04:34
PROVIDERS: Admitting Provider Internal Medicine; Emergency Provider Emergency Medicine; Visit Provider Family Medicine
DX: J96.02 Acute respiratory failure with hypercapnia (principal); G93.41 Metabolic encephalopathy; I50.32 Chronic diastolic (congestive) heart failure; J44.9 Chronic obstructive pulmonary disease, unspecified; Z20.822 Contact with and (suspected) exposure to COVID-19; M19.90 Unspecified osteoarthritis, unspecified site; F41.9 Anxiety disorder, unspecified; I11.0 Hypertensive heart disease with heart failure; E11.9 Type 2 diabetes mellitus without complications; G47.30 Sleep apnea, unspecified; K21.9 Gastro-esophageal reflux disease without esophagitis; Z79.84 Long term (current) use of oral hypoglycemic drugs; Z79.4 Long term (current) use of insulin; Z90.710 Acquired absence of both cervix and uterus; Z90.49 Acquired absence of other specified parts of digestive tract; Z98.42 Cataract extraction status, left eye; Z98.41 Cataract extraction status, right eye; Z87.891 Personal history of nicotine dependence
CPT/HCPCS: 36415; 36600; 70450; 71045; 80048; 80053; 81001; 82805; 82948; 83036; 83605; 83690; 83735; 83880; 84484; 85025; 85027; 85055; 85610; 85730; 87040; 87636; 93005; 93306; 94002; 94003; 96361; 96374; 96375; 96376; 99285; A9270; G0378; J0780; J1815; J1940; J2405; J2930; J7030